=== PATIENT | female | born 1935 | race Caucasian/White ===

== ENCOUNTER 2018-02-15 15:10 | Inpatient (IN) | payer MEDICARE ==
[2018-02-15] MEDS ORDERED: oxyCODONE/Acetamin 5/325 MG* TAB PO ONE (15:48)
--- NOTE | 2018-02-15 16:19 | RAD ---
HISTORY: Fall, right hip pain and tenderness COMPARISONS: None VIEWS: 7, frontal views of the pelvis with frontal and crosstable lateral views of the right femur FINDINGS: BONE DENSITY: There is diffuse osteopenia. BONES: The patient is status post left hemiarthroplasty. There is a slightly impacted fracture of the right femoral neck. JOINTS: The patient is status post left hip arthroplasty. There is mild osteoarthritis of the right hip and knee ALIGNMENT: There is no dislocation. SOFT TISSUES: Unremarkable. OTHER FINDINGS: None. IMPRESSION: SLIGHTLY IMPACTED FRACTURE OF THE RIGHT FEMORAL NECK
[2018-02-15] MEDS ORDERED: NS 0.9% 1000 ML* 1,000 ML IV ONE (16:21)
--- NOTE | 2018-02-15 16:42 | RAD ---
HISTORY: Right hip fracture COMPARISONS: None VIEWS: 1: frontal portable view of the chest at 4:31 PM FINDINGS: LINES AND TUBES: None. CARDIOMEDIASTINAL SILHOUETTE: The cardiomediastinal silhouette is normal for portable technique. PLEURA: The costophrenic angles are sharp. No pleural abnormalities are noted. LUNG PARENCHYMA: There is hyperinflation. ABDOMEN: The upper abdomen is clear. There is no subphrenic gas. BONES AND SOFT TISSUES: There is diffuse osteopenia. There is remote posttraumatic deformity to the left clavicle. IMPRESSION: HYPERINFLATION. NO ACTIVE CARDIOPULMONARY DISEASE.
[2018-02-15 16:51] LABS: ABS Basophils 0 10^3/ul (0-0.2); ABS Eosinophils 0.1 10^3/ul (0-0.6); ABS Lymphocytes 1.3 10^3/ul (1.0-4.8); ABS Monocytes 0.2 10^3/ul (0-0.8); ABS Neutrophils 1.6 10^3/ul (1.5-7.7); ABS Nucleated RBC 0 10^3/ul; Eosinophil % 3.9 % (0-6); Hematocrit 33 % (35-47); Hemoglobin 11.3 g/dl (12.0-16.0); Lymphocyte % 40.2 % (25-47); Mean Corpuscular HGB Conc 34 g/dl (31-36); Mean Corpuscular Hemoglobin 31 pg (27-31); Mean Corpuscular Volume 91 fL (80-97); Mean Platelet Volume 7.3 um3 (7.4-10.4); Nucleated Red Blood Cells % 0; Platelet Count 211 10^3/ul (150-450); Red Blood Count 3.64 10^6/ul (4.0-5.4); Red Cell Distribution Width 14 % (10.5-15); White Blood Count 3.2 10^3/ul (3.5-10.8)
[2018-02-15 17:00] LABS: INR 0.96 (0.77-1.02)
[2018-02-15] MEDS ORDERED: Morphine INJ* 10 MG/ML 1 ML CARPUJECT IV ONE (17:15)
--- NOTE | 2018-02-15 17:15 | ED ---
Callum Hansen Stephanie, scribed for Petros Hyde on 02/15/18 at 1551 . Lower Extremity - HPI Summary HPI Summary: The pt is an 82 y/o F BIBA to the ED with c/o R hip pain that began today at 15: 19. Symptoms include R buttock pain. The pt states she fell on her R hip. - History of Current Complaint Chief Complaint: EDHipPelvisInjury Stated Complaint: RT HIP PAIN Time Seen by Provider: 02/15/18 15:31 Hx Obtained From: Patient Mechanism Of Injury: Fall From A Standing Position Onset of Pain: Post Accident Onset/Duration: Still Present Severity Currently: Moderate Pain Intensity: 6 Pain Scale Used: 0-10 Numeric Timing: Constant Location: Is Discrete @ - R hip and buttock Aggravating Factor(s): Movement Alleviating Factor(s): Nothing - Allergies/Home Medications Allergies/Adverse Reactions: Allergies Allergy/AdvReac Type Severity Reaction Status Date / Time No Known Allergies Allergy Verified 02/15/18 15:30 Home Medications: Home Medications Citalopram TAB* [CeleXA TAB*] 20 mg PO DAILY 02/15/18 [History Confirmed ] Metoprolol Succinate XL TAB* [Toprol XL TAB*] 50 mg PO QAM 02/15/18 [History Confirmed 02/15/18] Rosuvastatin (NF) [Crestor (NF)] 20 mg PO QPM 02/15/18 [History Confirmed ] PMH/Surg Hx/FS Hx/Imm Hx Sensory History: Denies: Hx Legally Blind EENT History: Denies: Hx Deafness - Surgical History Surgery Procedure, Year, and Place: NONE Infectious Disease History: No Infectious Disease History: Denies: Traveled Outside the [place] in Last 30 Days - Family History Known Family History: Negative: Renal Disease - Social History Occupation: Retired Lives: With Family Alcohol Use: None Hx Substance Use: No Substance Use Type: Reports: None Hx Tobacco Use: No Smoking Status (MU): Never Smoked Tobacco Have You Smoked in the Last Year: No Review of Systems Negative: Fever Positive: Other - R hip pain, R buttock pain Negative: Slurred Speech All Other Systems Reviewed And Are Negative: Yes Physical Exam - Summary Physical Exam Summary: Appearance: Well appearing, no pain distress Skin: warm, dry, reflects adequate perfusion Head/face: normal Eyes: EOMI, NASEEM ENT: normal Neck: supple, non-tender Respiratory: CTA, breath sounds present Cardiovascular: RRR, pulses symmetrical Abdomen: non-tender, soft Bowel: present Musculoskeletal: tenderness in R hip and R upper thigh, restricted ROM of R LE at hip Neuro: normal, sensory motor intact, A&Ox3, no neurological deficit Triage Information Reviewed: Yes Vital Signs On Initial Exam: Initial Vitals Temp Pulse Resp BP Pulse Ox 98.5 F 53 18 140/69 97 02/15/18 15:14 02/15/18 15:14 02/15/18 15:14 02/15/18 15:14 02/15/18 15:14 Vital Signs Reviewed: Yes Diagnostics - Vital Signs Vital Signs Temp Pulse Resp BP Pulse Ox 02/15/18 15:14 98.5 F 53 18 140/69 97 - Laboratory Lab Results: Lab Results 02/15/18 02/15/18 02/15/18 Range/Units 16:42 16:42 16:42 WBC 3.2 L (3.5-10.8) 10^3/ul RBC 3.64 L (4.0-5.4) 10^6/ul Hgb 11.3 L (12.0-16.0) g/dl Hct 33 L (35-47) % MCV 91 (80-97) fL MCH 31 (27-31) pg MCHC 34 (31-36) g/dl RDW 14 (10.5-15) % Plt Count 211 (150-450) 10^3/ul MPV 7.3 L (7.4-10.4) um3 Neut % (Auto) 48.9 (38-83) % Lymph % (Auto) 40.2 (25-47) % [facility] % (Auto) 6.2 (0-7) % Eos % (Auto) 3.9 (0-6) % Baso % (Auto) 0.8 (0-2) % Absolute Neuts (auto) 1.6 (1.5-7.7) 10^3/ul Absolute Lymphs (auto) 1.3 (1.0-4.8) 10^3/ul Absolute Monos (auto) 0.2 (0-0.8) 10^3/ul Absolute Eos (auto) 0.1 (0-0.6) 10^3/ul Absolute Basos (auto) 0 (0-0.2) 10^3/ul Absolute Nucleated RBC 0 10^3/ul Nucleated RBC % 0 INR (Anticoag Therapy) 0.96 (0.77-1.02) APTT 33.5 (26.0-36.3) seconds Sodium 136 L (139-145) mmol/L Potassium 3.9 (3.5-5.0) mmol/L Chloride 103 (101-111) mmol/L Carbon Dioxide 23 (22-32) mmol/L Anion Gap 10 (2-11) mmol/L BUN 25 H (6-24) mg/dL Creatinine 0.99 H (0.51-0.95) mg/dL Est GFR ( Amer) 69.4 (>60) Est GFR (Non-Af Amer) 54.0 (>60) BUN/Creatinine Ratio 25.3 H (8-20) Glucose 97 (70-100) mg/dL Calcium 9.3 (8.6-10.3) mg/dL Total Bilirubin 0.60 (0.2-1.0) mg/dL AST 42 H (13-39) U/L ALT 38 (7-52) U/L Alkaline Phosphatase 44 (34-104) U/L Total Protein 6.8 (6.4-8.9) g/dL Albumin 4.0 (3.2-5.2) g/dL Globulin 2.8 (2-4) g/dL Albumin/Globulin Ratio 1.4 (1-3) Blood Type Antibody Screen 02/15/18 Range/Units 16:45 WBC (3.5-10.8) 10^3/ul RBC (4.0-5.4) 10^6/ul Hgb (12.0-16.0) g/dl Hct (35-47) % MCV (80-97) fL MCH (27-31) pg MCHC (31-36) g/dl RDW (10.5-15) % Plt Count (150-450) 10^3/ul MPV (7.4-10.4) um3 Neut % (Auto) (38-83) % Lymph % (Auto) (25-47) % [facility] % (Auto) (0-7) % Eos % (Auto) (0-6) % Baso % (Auto) (0-2) % Absolute Neuts (auto) (1.5-7.7) 10^3/ul Absolute Lymphs (auto) (1.0-4.8) 10^3/ul Absolute Monos (auto) (0-0.8) 10^3/ul Absolute Eos (auto) (0-0.6) 10^3/ul Absolute Basos (auto) (0-0.2) 10^3/ul Absolute Nucleated RBC 10^3/ul Nucleated RBC % INR (Anticoag Therapy) (0.77-1.02) APTT (26.0-36.3) seconds Sodium (139-145) mmol/L Potassium (3.5-5.0) mmol/L Chloride (101-111) mmol/L Carbon Dioxide (22-32) mmol/L Anion Gap (2-11) mmol/L BUN (6-24) mg/dL Creatinine (0.51-0.95) mg/dL Est GFR ( Amer) (>60) Est GFR (Non-Af Amer) (>60) BUN/Creatinine Ratio (8-20) Glucose (70-100) mg/dL Calcium (8.6-10.3) mg/dL Total Bilirubin (0.2-1.0) mg/dL AST (13-39) U/L ALT (7-52) U/L Alkaline Phosphatase (34-104) U/L Total Protein (6.4-8.9) g/dL Albumin (3.2-5.2) g/dL Globulin (2-4) g/dL Albumin/Globulin Ratio (1-3) Blood Type O Negative Antibody Screen Pending Result Diagrams: 02/15/18 16:42 02/15/18 16:42 Lab Statement: Any lab studies that have been ordered have been reviewed, and results considered in the medical decision making process. - Radiology Pelvis XRay Xray Interpretation: Positive (See Comments) Radiology Interpretation Completed By: Radiologist - SLIGHTLY IMPACTED FRACTURE OF THE RIGHT FEMORAL NECK. ED physician has reviewed this report. Femur XRay Xray Interpretation: Positive (See Comments) Radiology Interpretation Completed By: Radiologist - SLIGHTLY IMPACTED FRACTURE OF THE RIGHT FEMORAL NECK. ED physician has reviewed this report. - EKG 16:41 Cardiac Rate: Bradycardia EKG Rhythm: Sinus Bradycardia - 55 BPM EKG Interpretation: No acute changes Lower Extremity Course/Dx - Course Course Of Treatment: The pt is an 82 y/o F BIBA to the ED with c/o R hip pain that began today at 15:19. Symptoms include R buttock pain. The pt states she fell on her R hip. At 17:03, ED physician spoke to Dr. Rg who suggested admission of the pt. Dr. Gonsalez accepted the pt for admission. - Diagnoses Differential Diagnosis/HQI/PQRI: Positive: Contusion, Fracture (Closed) Provider Diagnoses: Closed right hip fracture - Physician Notifications Discussed Care Of Patient With: Nakul Gonsalez Time Discussed With Above Provider: 17:02 Instructed by Provider To: Admit As Inpatient Discharge - Sign-Out/Discharge Documenting (check all that apply): Discharge/Admit/Transfer - Admit - Discharge Plan Condition: Stable Disposition: ADMITTED TO [facility] - Billing Disposition and Condition Condition: STABLE [place] [place] The documentation as recorded by the Callum tobin Stephanie accurately reflects the service I personally performed and the decisions made by Barrett chow Emmanuel.
[2018-02-15] MEDS ORDERED: Ondansetron INJ* 2 MG/ML VIAL IV ONE (17:16)
[2018-02-15] MEDS ORDERED: Morphine VIAL* 4 MG/ML VIAL (1 ml vial) IV ONE ×2 (17:26→17:38)
[2018-02-15] MEDS ORDERED: PROCHLORPERAZINE INJ 5 MG/ML 2 ML VIAL IM PRN (17:53)
[2018-02-15] MEDS: Morphine VIAL* 4 MG/ML VIAL (1 ml vial) IV PRN (18:46)
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
--- NOTE | 2018-02-15 21:08 | RAD ---
HISTORY: Preoperative planning COMPARISONS: February 15, 2018 VIEWS: 3, Frontal view of the pelvis with frontal and crosstable lateral views of the right hip FINDINGS: BONE DENSITY: Normal. BONES: Again noted is a slightly impacted and angulated fracture of the right femoral neck. The patient is status post left hip arthroplasty. JOINTS: The patient is status post left hip arthroplasty. ALIGNMENT: There is no dislocation. SOFT TISSUES: Unremarkable. OTHER FINDINGS: None. IMPRESSION: AGAIN NOTED IS A SLIGHTLY IMPACTED AND ANGULATED FRACTURE OF THE RIGHT FEMORAL NECK
[2018-02-15] MEDS: Citalopram TAB* 20 MG PO SCH (21:54)
[2018-02-15] MEDS: Atorvastatin* 40 MG TAB PO SCH (21:54)
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
[2018-02-16 06:23] LABS: Hematocrit 33 % (35-47); Hemoglobin 10.9 g/dl (12.0-16.0)
[2018-02-16 06:43] LABS: EGFR Non-African American 62.6 (>60)
[2018-02-16] MEDS: NS 0.9% 1000 ML* 1,000 ML IV SCH ×2 (06:55→23:01)
[2018-02-16] MEDS ORDERED: Metoprolol Succinate XL TAB* 50 MG PO SCH (09:00)
[2018-02-16] MEDS ORDERED: Citalopram TAB* 20 MG PO SCH (09:00)
[2018-02-16] MEDS ORDERED: ceFAZolin 2 GM PREMIX (*) 2 GM/50 ML BAG IVPB ONE (09:28)
[2018-02-16] MEDS ORDERED: Morphine INJ* 10 MG/ML 1 ML CARPUJECT ONE (09:52)
[2018-02-16] MEDS: Morphine VIAL* 4 MG/ML VIAL (1 ml vial) IV PRN (09:53)
--- NOTE | 2018-02-16 10:52 | PN ---
Progress Note - Progress Note Date of Service: 02/16/18 SOAP: Subjective: Pt seen and examined. Resting comfortable. No pain with no motion. On O2 all night. Family at graduation; Denies numbness and tingling. no fevers or chills. NPO Objective: Temp Pulse Resp BP Pulse Ox 98.6 F 63 12 108/51 96 02/16/18 10:27 02/16/18 10:27 02/16/18 10:27 02/16/18 10:27 02/16/18 10:27 NAD. AAOx3; pleasant R hip: skin intact, tender appropriately, SILT grossly distally. Brisk cap refill. calf soft and nontender. able to dorsiflex/plantarflex hip Assessment: valgus impacted fx of right hip Plan: Plan for R hip cannulated screws today in OR NPO ancef showroom salesperson to OR.
[2018-02-16] MEDS ORDERED: Bupivacaine 0.25% SDV* 30 ML ONE (10:57)
[2018-02-16] MEDS ORDERED: Propofol* 10 MG/ML 20 ML BTL IV PUSH ONE (11:09)
--- NOTE | 2018-02-16 11:28 | PN ---
Subjective Date of Service: 02/16/18 Interval History: Patient reports her pain is 4/10 and has been improving the last hour. She denies N/V. No SOB/CP. She is looking forward to eating. Objective Active Medications: Atorvastatin Calcium (Lipitor*) 40 mg PO QPM [facility] Last Admin: 02/15/18 21:54 Dose: 40 mg Citalopram Hydrobromide (Celexa Tab*) 20 mg PO BEDTIME [facility] Last Admin: 02/15/18 21:54 Dose: 20 mg Sodium Chloride (Ns 0.9% 1000 Ml*) 1,000 mls @ 100 mls/hr IV PER RATE [facility] Last Admin: 02/16/18 06:55 Dose: 100 mls/hr Metoprolol Succinate (Toprol Xl Tab*) 50 mg PO QAM [facility] Last Admin: 02/16/18 08:21 Dose: 50 mg Morphine Sulfate (Morphine Vial*) 2 mg IV Q4H PRN PRN Reason: PAIN - MODERATE Last Admin: 02/16/18 09:53 Dose: 2 mg Oxycodone/Acetaminophen (Percocet 5/325 Tab*) 1 tab PO Q4H PRN PRN Reason: PAIN Prochlorperazine Edisylate (Compazine Inj*) 5 mg IM Q6H PRN PRN Reason: NAUSEA Vital Signs - 8 hr 02/16/18 02/16/18 02/16/18 04:18 06:35 07:30 Temperature 98.8 F 97.4 F Pulse Rate 56 51 Respiratory 15 15 15 Rate Blood Pressure 92/44 103/48 (mmHg) O2 Sat by Pulse 100 98 Oximetry 02/16/18 02/16/18 02/16/18 09:10 09:53 10:27 Temperature 99.3 F 98.6 F Pulse Rate 66 63 Respiratory 16 16 12 Rate Blood Pressure 112/60 108/51 (mmHg) O2 Sat by Pulse 97 96 Oximetry Oxygen Devices in Use Now: Nasal Cannula Appearance: 82 yo female well developed A+O x3 in NAD Eyes: No Scleral Icterus, PERRLA Ears/Nose/Mouth/Throat: NL Teeth, Lips, Gums, Mucous Membranes Moist Neck: NL Appearance and Movements; NL JVP Respiratory: Symmetrical Chest Expansion and Respiratory Effort, Clear to Auscultation Cardiovascular: NL Sounds; No Murmurs; No JVD, RRR, No Edema Abdominal: NL Sounds; No Tenderness; No Distention Extremities: No Clubbing, Cyanosis, - Skin: No Rash or Ulcers, No Nodules or Sclerosis Neurological: Alert and Oriented x 3, NL Sensation, NL Muscle Strength and Tone Lines/Tubes/Other Access: Clean, Dry and Intact Peripheral IV Nutrition: Taking PO's Result Diagrams: 02/16/18 06:16 02/16/18 06:16 Additional Lab and Data: Lab Results 02/15/18 02/15/18 02/15/18 Range/Units 16:42 16:42 16:42 WBC 3.2 L (3.5-10.8) 10^3/ul RBC 3.64 L (4.0-5.4) 10^6/ul Hgb 11.3 L (12.0-16.0) g/dl Hct 33 L (35-47) % MCV 91 (80-97) fL MCH 31 (27-31) pg MCHC 34 (31-36) g/dl RDW 14 (10.5-15) % Plt Count 211 (150-450) 10^3/ul MPV 7.3 L (7.4-10.4) um3 Neut % (Auto) 48.9 (38-83) % Lymph % (Auto) 40.2 (25-47) % [place] % (Auto) 6.2 (0-7) % Eos % (Auto) 3.9 (0-6) % Baso % (Auto) 0.8 (0-2) % Absolute Neuts (auto) 1.6 (1.5-7.7) 10^3/ul Absolute Lymphs (auto) 1.3 (1.0-4.8) 10^3/ul Absolute Monos (auto) 0.2 (0-0.8) 10^3/ul Absolute Eos (auto) 0.1 (0-0.6) 10^3/ul Absolute Basos (auto) 0 (0-0.2) 10^3/ul Absolute Nucleated RBC 0 10^3/ul Nucleated RBC % 0 INR (Anticoag Therapy) 0.96 (0.77-1.02) APTT 33.5 (26.0-36.3) seconds Sodium 136 L (139-145) mmol/L Potassium 3.9 (3.5-5.0) mmol/L Chloride 103 (101-111) mmol/L Carbon Dioxide 23 (22-32) mmol/L Anion Gap 10 (2-11) mmol/L BUN 25 H (6-24) mg/dL Creatinine 0.99 H (0.51-0.95) mg/dL Est GFR ( Amer) 69.4 (>60) Est GFR (Non-Af Amer) 54.0 (>60) BUN/Creatinine Ratio 25.3 H (8-20) Glucose 97 (70-100) mg/dL Calcium 9.3 (8.6-10.3) mg/dL Total Bilirubin 0.60 (0.2-1.0) mg/dL AST 42 H (13-39) U/L ALT 38 (7-52) U/L Alkaline Phosphatase 44 (34-104) U/L Total Protein 6.8 (6.4-8.9) g/dL Albumin 4.0 (3.2-5.2) g/dL Globulin 2.8 (2-4) g/dL Albumin/Globulin Ratio 1.4 (1-3) Blood Type Antibody Screen 02/15/18 Range/Units 16:45 WBC (3.5-10.8) 10^3/ul RBC (4.0-5.4) 10^6/ul Hgb (12.0-16.0) g/dl Hct (35-47) % MCV (80-97) fL MCH (27-31) pg MCHC (31-36) g/dl RDW (10.5-15) % Plt Count (150-450) 10^3/ul MPV (7.4-10.4) um3 Neut % (Auto) (38-83) % Lymph % (Auto) (25-47) % [place] % (Auto) (0-7) % Eos % (Auto) (0-6) % Baso % (Auto) (0-2) % Absolute Neuts (auto) (1.5-7.7) 10^3/ul Absolute Lymphs (auto) (1.0-4.8) 10^3/ul Absolute Monos (auto) (0-0.8) 10^3/ul Absolute Eos (auto) (0-0.6) 10^3/ul Absolute Basos (auto) (0-0.2) 10^3/ul Absolute Nucleated RBC 10^3/ul Nucleated RBC % INR (Anticoag Therapy) (0.77-1.02) APTT (26.0-36.3) seconds Sodium (139-145) mmol/L Potassium (3.5-5.0) mmol/L Chloride (101-111) mmol/L Carbon Dioxide (22-32) mmol/L Anion Gap (2-11) mmol/L BUN (6-24) mg/dL Creatinine (0.51-0.95) mg/dL Est GFR ( Amer) (>60) Est GFR (Non-Af Amer) (>60) BUN/Creatinine Ratio (8-20) Glucose (70-100) mg/dL Calcium (8.6-10.3) mg/dL Total Bilirubin (0.2-1.0) mg/dL AST (13-39) U/L ALT (7-52) U/L Alkaline Phosphatase (34-104) U/L Total Protein (6.4-8.9) g/dL Albumin (3.2-5.2) g/dL Globulin (2-4) g/dL Albumin/Globulin Ratio (1-3) Blood Type O Negative Antibody Screen Pending Assess/Plan/Problems-Billing Assessment: 82 yo female from [place] with a PMH of HTN, Osteoarthritis, HLD and anxiety who was at [facility] and had a mechanical fall found to have a right femoral neck fractured. - Patient Problems (1) Fracture of femoral neck, right, closed Comment: POD #0 Dispo per Orth Team Pain management, bowel regimen, PT/OT (2) HTN (hypertension) Comment: - Controlled. Continue Metoprolol home dose with hold parameters. (3) HLD (hyperlipidemia) Comment: - continue statin (4) Depression Comment: - controlled - continue celexa - supportive treatment (5) DVT prophylaxis Comment: lovenox (6) Full code status Status and Disposition: inpatient with right femoral neck fracture with repair. lives in [place], discharge to be determined
[2018-02-16] MEDS ORDERED: Naloxone* 0.4 MG/ML 1 ML VIAL IV PRN (11:59)
[2018-02-16] MEDS ORDERED: Acetaminophen TAB* 325 MG PO PRN (11:59)
[2018-02-16] MEDS ORDERED: fentaNYL* 50 MCG/ML 2 ML VIAL (100 MCG VIAL) IV PRN (11:59)
[2018-02-16] MEDS ORDERED: DiMENhydriNATE IV* 50 MG/ML VIAL IV PUSH PRN (11:59)
[2018-02-16] MEDS ORDERED: Morphine INJ* 2 MG/ML 1 ML CARPUJECT IV PRN (11:59)
[2018-02-16] MEDS ORDERED: EPHEDrine (Pressors)* 50 MG/ML VIAL ONE (12:17)
[2018-02-16] MEDS ORDERED: Lidocaine 2% PF * 5 ML VIAL ONE (12:17)
[2018-02-16] MEDS ORDERED: fentaNYL* 50 MCG/ML 2 ML VIAL (100 MCG VIAL) ONE (12:32)
--- NOTE | 2018-02-16 12:43 | RAD ---
INDICATION: Right hip pinning COMPARISON: February 15, 2018 FINDINGS: 38 seconds of fluoroscopy were provided for the with pedis department. Fluoroscopic spot imaging of the right hip were obtained for operative control and show interval right hip pinning. There is no evidence of hardware failure. . CPT II Codes: G9500 (fluoro time doc)
[2018-02-16] MEDS ORDERED: Acetaminophen TAB* 325 MG ONE (13:19)
[2018-02-16] MEDS: oxyCODONE/Acetamin 5/325 MG* TAB PO PRN (15:53)
[2018-02-16] MEDS: Atorvastatin* 40 MG TAB PO SCH (18:43)
[2018-02-16] MEDS: ceFAZolin 1 GM in Dextrose (*) 1 GM/50 ML BAG IVPB SCH (19:26)
[2018-02-16] MEDS: Citalopram TAB* 20 MG PO SCH (21:00)
--- NOTE | 2018-02-16 23:24 | OP ---
OPERATIVE REPORT: DATE OF OPERATION: 02/16/18 DATE OF : 39 SURGEON: Kori Rg MD SALES ACCOUNT MANAGER: None. ANESTHESIOLOGIST: Dr. Lovett. ANESTHESIA: General. PRE-OP DIAGNOSIS: Right subcapital femoral neck fracture, valgus impacted. POST-OP DIAGNOSIS: Right subcapital femoral neck fracture, valgus impacted. OPERATIVE PROCEDURE: Right hip cannulated screws. INDICATIONS: Corrie Rogers is an 82-year-old female, who was present for her grandson's graduation at [employer] and she fell yesterday. She sustained a mechanical fall with no loss of consciousness. She sustained a right femoral neck fracture. She has a history of previous left displacement femoral neck fracture, treated with hemiarthroplasty 2 years ago. She apparently resides in [place]. Her family lives in [place], and is here for the graduation. After an extensive discussion of the risks and benefits of surgical versus nonoperative treatment, she has elected to proceed with surgical treatment. Risks and benefits of surgery were discussed and included, but not limited to, bleeding, infection, damage to nerves, vessels, surrounding structures, wound nonhealing, persistent pain, need for surgery, risks of osteonecrosis, nonunion , malunion, need for further surgery, risk of arthritis, incomplete relief of symptoms, loss of level of functionality, risk of DVT, risk of anesthesia. She elected to proceed. COMPLICATIONS: None. ESTIMATED BLOOD LOSS: 50. DESCRIPTION OF PROCEDURE: The patient was greeted in the preoperative area by the attending surgeon. The correct extremity was marked and the consent was confirmed. The patient was then brought back to the operating suite where she was placed in the supine position on the operating table. She then underwent general anesthesia with LMA intubation after which she was appropriately positioned in the traction table with a well-padded perineal post. The left leg was draped as well and it was then placed in a well-leg ortiz. Gentle traction on the hip was then done with slight external rotation. The x-ray was brought in to confirm that there was no evidence of displacement. After this was done, the right hip was then prepped and draped in the usual sterile fashion beginning with chlorhexidine soap, scrub, and alcohol wipe, and a final prep with ChloraPrep. After appropriate surgical pause indicating site, side, procedure, administration of antibiotics, a lateral incision was made over the femur. Soft tissues were carefully dissected to expose the IT band, which was then sharply incised. At this point, a 2.8-mm guidewire was then placed with fluoroscopic visualization. First, an inferior one was placed inferior and centered on the femoral neck. This was confirmed on AP and lateral views. Then , two more proximal guidewires were placed in a parallel fashion, one more anteriorly in the neck, one more posteriorly in the neck. These were confirmed under fluoroscopic visualization. Once these were placed at the appropriate depth, there were measured and then the lateral cortex was penetrated with a cannulated drill and the final screws were placed using short thread 7.3-mm cannulated screws and this was confirmed under C-arm visualization to be subchondral, but had enough length across the fracture site. Final images were obtained. The wounds were copiously irrigated with sterile saline. The IT band was closed in an interrupted fashion with 0 Vicryl, skin in layers with 2- 0 Vicryl and irene. The wound was then injected with 30 cc of 0.25% Marcaine plain. Sterile dressings were applied. She was woken from anesthesia and transferred to PACU in stable condition. POSTOPERATIVE PLAN: She will be weightbearing as tolerated. She will placed on pain medications. We will follow her blood count. She will start physical therapy and begin weightbearing as tolerated as soon as possible. DVT prophylaxis will be Lovenox for 6 weeks to prevent DVT. She will likely be discharged to a facility closer to her family who live in [place]. I will continue to follow the patient when she is admitted in the hospital. Dressing will be changed on postop day 2. She will receive 24 hours of postoperative antibiotics. We will follow the patient while in-house and then help set up discharge when she has reached maximal medical improvement. [id number]/[facility] #: [id number] [facility]ST[facility]atiana
[2018-02-17] MEDS: oxyCODONE/Acetamin 5/325 MG* TAB PO PRN ×3 (00:11→17:46)
[2018-02-17] MEDS: ceFAZolin 1 GM in Dextrose (*) 1 GM/50 ML BAG IVPB SCH ×2 (03:38→12:09)
[2018-02-17] MEDS ORDERED: Ondansetron 40 MG VIAL* 2 MG/ML 20 ML VIAL IV PRN (08:03)
--- NOTE | 2018-02-17 08:18 | PN ---
Progress Note - Progress Note Date of Service: 02/17/18 SOAP: Subjective: Pt seen and examined. Complains of nausea with emesis overnight. Denies CP, calf pain. No numbness and tingling. Painful at incision site. Objective: Temp Pulse Resp BP Pulse Ox 99.9 F 73 16 142/63 83 02/17/18 07:23 02/17/18 07:23 02/17/18 07:23 02/17/18 07:23 02/17/18 07:23 NAD. AAOx3. pleasant and comfortable. Lying in bed. on O2. Right lower extremity : Dressing in place. calf soft, nontender. SILT grossly distally. Able to dorsiflex/plantarflex the ankle. brisk cap refill. Assessment: POD#1 from R hip cannulated screw Plan: nausea. only able to take compazine increase PO as tolerated DVT ppx with lovenox continue IV abx until 24 hours post op dressing change tomorrow WBAT- PT/OT on O2 will wean as tolerated dispo likely to SNF closer to family analgesia <Rad Scott G - Last Filed: 02/17/18 08:11> - Progress Note SOAP: ERROR: Note added by Dr Scott by accident. Was documented by Dr Rg. Sodium 140 mmol/L (139-145) 02/16/18 06:16 Potassium 4.0 mmol/L (3.5-5.0) 02/16/18 06:16 BUN 24 mg/dL (6-24) 02/16/18 06:16 Creatinine 0.87 mg/dL (0.51-0.95) 02/16/18 06:16 Calcium 8.8 mg/dL (8.6-10.3) 02/16/18 06:16 AST 42 U/L (13-39) H 02/15/18 16:42 ALT 38 U/L (7-52) 02/15/18 16:42 Laboratory Last Values WBC 3.2 10^3/ul (3.5-10.8) L 02/15/18 16:42 RBC 3.64 10^6/ul (4.0-5.4) L 02/15/18 16:42 Hgb 10.9 g/dl (12.0-16.0) L 02/16/18 06:16 Hct 33 % (35-47) L 02/16/18 06:16 MCV 91 fL (80-97) 02/15/18 16:42 MCH 31 pg (27-31) 02/15/18 16:42 MCHC 34 g/dl (31-36) 02/15/18 16:42 RDW 14 % (10.5-15) 02/15/18 16:42 Plt Count 211 10^3/ul (150-450) 02/15/18 16:42 MPV 7.3 um3 (7.4-10.4) L 02/15/18 16:42 Neut % (Auto) 48.9 % (38-83) 02/15/18 16:42 Lymph % (Auto) 40.2 % (25-47) 02/15/18 16:42 [place] % (Auto) 6.2 % (0-7) 02/15/18 16:42 Eos % (Auto) 3.9 % (0-6) 02/15/18 16:42 Baso % (Auto) 0.8 % (0-2) 02/15/18 16:42 Absolute Neuts (auto) 1.6 10^3/ul (1.5-7.7) 02/15/18 16:42 Absolute Lymphs (auto) 1.3 10^3/ul (1.0-4.8) 02/15/18 16:42 Absolute Monos (auto) 0.2 10^3/ul (0-0.8) 02/15/18 16:42 Absolute Eos (auto) 0.1 10^3/ul (0-0.6) 02/15/18 16:42 Absolute Basos (auto) 0 10^3/ul (0-0.2) 02/15/18 16:42 Absolute Nucleated RBC 0 10^3/ul 02/15/18 16:42 Nucleated RBC % 0 02/15/18 16:42 INR (Anticoag Therapy) 0.96 (0.77-1.02) 02/15/18 16:42 APTT 33.5 seconds (26.0-36.3) 02/15/18 16:42 Sodium 140 mmol/L (139-145) 02/16/18 06:16 Potassium 4.0 mmol/L (3.5-5.0) 02/16/18 06:16 Chloride 109 mmol/L (101-111) 02/16/18 06:16 Carbon Dioxide 26 mmol/L (22-32) 02/16/18 06:16 Anion Gap 5 mmol/L (2-11) 02/16/18 06:16 BUN 24 mg/dL (6-24) 02/16/18 06:16 Creatinine 0.87 mg/dL (0.51-0.95) 02/16/18 06:16 Est GFR ( Amer) 80.6 (>60) 02/16/18 06:16 Est GFR (Non-Af Amer) 62.6 (>60) 02/16/18 06:16 BUN/Creatinine Ratio 27.6 (8-20) H 02/16/18 06:16 Glucose 152 mg/dL (70-100) H 02/16/18 06:16 Calcium 8.8 mg/dL (8.6-10.3) 02/16/18 06:16 Total Bilirubin 0.60 mg/dL (0.2-1.0) 02/15/18 16:42 AST 42 U/L (13-39) H 02/15/18 16:42 ALT 38 U/L (7-52) 02/15/18 16:42 Alkaline Phosphatase 44 U/L (34-104) 02/15/18 16:42 Total Protein 6.8 g/dL (6.4-8.9) 02/15/18 16:42 Albumin 4.0 g/dL (3.2-5.2) 02/15/18 16:42 Globulin 2.8 g/dL (2-4) 02/15/18 16:42 Albumin/Globulin Ratio 1.4 (1-3) 02/15/18 16:42 Blood Type O Negative 02/15/18 16:45 Antibody Screen Negative 02/15/18 16:45 <Kori Rg - Last Filed: 02/17/18 08:21>
--- NOTE | 2018-02-17 08:22 | PN ---
Progress Note - Progress Note Date of Service: 02/17/18 Note: Previous note placed in error. Should be assigned to Dr Rg.
[2018-02-17] MEDS ORDERED: PROCHLORPERAZINE INJ 5 MG/ML 2 ML VIAL IV PRN (08:45)
[2018-02-17] MEDS: Enoxaparin(*) 30 MG/0.3 ML SYR SUBCUT SCH (08:59)
[2018-02-17] MEDS: Metoprolol Succinate XL TAB* 50 MG PO SCH (08:59)
--- NOTE | 2018-02-17 09:53 | PN ---
Subjective Date of Service: 02/17/18 Interval History: Patient reports she worked with PT this am and had some pain. She states she didnt sleep well because she was uncomfortable. Some mild nausea this am. No vomiting, denies abdominal pain, no diarrhea. Objective Active Medications: Atorvastatin Calcium (Lipitor*) 40 mg PO QPM [facility] Last Admin: 02/16/18 18:43 Dose: 40 mg Citalopram Hydrobromide (Celexa Tab*) 20 mg PO BEDTIME [facility] Last Admin: 02/16/18 21:00 Dose: 20 mg Enoxaparin Sodium (Lovenox(*)) 30 mg SUBCUT Q24H [facility] Last Admin: 02/17/18 08:59 Dose: 30 mg Sodium Chloride (Ns 0.9% 1000 Ml*) 1,000 mls @ 100 mls/hr IV PER RATE [facility] Last Admin: 02/16/18 23:01 Dose: 100 mls/hr Cefazolin Sodium/Dextrose (Kefzol 1 Gm In Dextrose Duplex (*)) 1 gm in 50 mls @ 200 mls/hr IVPB Q8H [facility] Stop: 02/17/18 11:44 Last Admin: 02/17/18 03:38 Dose: 200 mls/hr Metoprolol Succinate (Toprol Xl Tab*) 50 mg PO QAM [facility] Last Admin: 02/17/18 08:59 Dose: 50 mg Morphine Sulfate (Morphine Vial*) 2 mg IV Q4H PRN PRN Reason: PAIN - MODERATE Last Admin: 02/16/18 09:53 Dose: 2 mg Naloxone HCl (Narcan*) 0.08 mg IV Q2M PRN PRN Reason: severe induced resp depression Stop: 02/17/18 11:58 Ondansetron HCl (Zofran 40 Mg Vial*) 4 mg IV Q6H PRN PRN Reason: NAUSEA Oxycodone/Acetaminophen (Percocet 5/325 Tab*) 1 tab PO Q4H PRN PRN Reason: PAIN Last Admin: 02/17/18 09:01 Dose: 1 tab Prochlorperazine Edisylate (Compazine Inj*) 5 mg IV Q6H PRN PRN Reason: NAUSEA Vital Signs - 8 hr 02/17/18 02/17/18 02/17/18 02:54 04:31 07:23 Temperature 98.3 F 99.9 F Pulse Rate 71 73 Respiratory 16 16 16 Rate Blood Pressure 131/61 142/63 (mmHg) O2 Sat by Pulse 100 83 Oximetry 02/17/18 09:01 Temperature Pulse Rate Respiratory 18 Rate Blood Pressure (mmHg) O2 Sat by Pulse Oximetry Oxygen Devices in Use Now: Nasal Cannula Appearance: elderly female A+O x3 in NAD sitting up in bed Eyes: No Scleral Icterus, PERRLA Ears/Nose/Mouth/Throat: NL Teeth, Lips, Gums, Clear Oropharnyx, Mucous Membranes Moist Respiratory: Symmetrical Chest Expansion and Respiratory Effort, Clear to Auscultation Cardiovascular: NL Sounds; No Murmurs; No JVD, RRR, No Edema Abdominal: NL Sounds; No Tenderness; No Distention Extremities: No Edema, No Clubbing, Cyanosis Neurological: Alert and Oriented x 3, NL Sensation Lines/Tubes/Other Access: Clean, Dry and Intact Peripheral IV Nutrition: Taking PO's Result Diagrams: 02/16/18 06:16 02/16/18 06:16 Additional Lab and Data: Lab Results 02/15/18 02/15/18 02/15/18 Range/Units 16:42 16:42 16:42 WBC 3.2 L (3.5-10.8) 10^3/ul RBC 3.64 L (4.0-5.4) 10^6/ul Hgb 11.3 L (12.0-16.0) g/dl Hct 33 L (35-47) % MCV 91 (80-97) fL MCH 31 (27-31) pg MCHC 34 (31-36) g/dl RDW 14 (10.5-15) % Plt Count 211 (150-450) 10^3/ul MPV 7.3 L (7.4-10.4) um3 Neut % (Auto) 48.9 (38-83) % Lymph % (Auto) 40.2 (25-47) % [place] % (Auto) 6.2 (0-7) % Eos % (Auto) 3.9 (0-6) % Baso % (Auto) 0.8 (0-2) % Absolute Neuts (auto) 1.6 (1.5-7.7) 10^3/ul Absolute Lymphs (auto) 1.3 (1.0-4.8) 10^3/ul Absolute Monos (auto) 0.2 (0-0.8) 10^3/ul Absolute Eos (auto) 0.1 (0-0.6) 10^3/ul Absolute Basos (auto) 0 (0-0.2) 10^3/ul Absolute Nucleated RBC 0 10^3/ul Nucleated RBC % 0 INR (Anticoag Therapy) 0.96 (0.77-1.02) APTT 33.5 (26.0-36.3) seconds Sodium 136 L (139-145) mmol/L Potassium 3.9 (3.5-5.0) mmol/L Chloride 103 (101-111) mmol/L Carbon Dioxide 23 (22-32) mmol/L Anion Gap 10 (2-11) mmol/L BUN 25 H (6-24) mg/dL Creatinine 0.99 H (0.51-0.95) mg/dL Est GFR ( Amer) 69.4 (>60) Est GFR (Non-Af Amer) 54.0 (>60) BUN/Creatinine Ratio 25.3 H (8-20) Glucose 97 (70-100) mg/dL Calcium 9.3 (8.6-10.3) mg/dL Total Bilirubin 0.60 (0.2-1.0) mg/dL AST 42 H (13-39) U/L ALT 38 (7-52) U/L Alkaline Phosphatase 44 (34-104) U/L Total Protein 6.8 (6.4-8.9) g/dL Albumin 4.0 (3.2-5.2) g/dL Globulin 2.8 (2-4) g/dL Albumin/Globulin Ratio 1.4 (1-3) Blood Type Antibody Screen 02/15/18 Range/Units 16:45 WBC (3.5-10.8) 10^3/ul RBC (4.0-5.4) 10^6/ul Hgb (12.0-16.0) g/dl Hct (35-47) % MCV (80-97) fL MCH (27-31) pg MCHC (31-36) g/dl RDW (10.5-15) % Plt Count (150-450) 10^3/ul MPV (7.4-10.4) um3 Neut % (Auto) (38-83) % Lymph % (Auto) (25-47) % [place] % (Auto) (0-7) % Eos % (Auto) (0-6) % Baso % (Auto) (0-2) % Absolute Neuts (auto) (1.5-7.7) 10^3/ul Absolute Lymphs (auto) (1.0-4.8) 10^3/ul Absolute Monos (auto) (0-0.8) 10^3/ul Absolute Eos (auto) (0-0.6) 10^3/ul Absolute Basos (auto) (0-0.2) 10^3/ul Absolute Nucleated RBC 10^3/ul Nucleated RBC % INR (Anticoag Therapy) (0.77-1.02) APTT (26.0-36.3) seconds Sodium (139-145) mmol/L Potassium (3.5-5.0) mmol/L Chloride (101-111) mmol/L Carbon Dioxide (22-32) mmol/L Anion Gap (2-11) mmol/L BUN (6-24) mg/dL Creatinine (0.51-0.95) mg/dL Est GFR ( Amer) (>60) Est GFR (Non-Af Amer) (>60) BUN/Creatinine Ratio (8-20) Glucose (70-100) mg/dL Calcium (8.6-10.3) mg/dL Total Bilirubin (0.2-1.0) mg/dL AST (13-39) U/L ALT (7-52) U/L Alkaline Phosphatase (34-104) U/L Total Protein (6.4-8.9) g/dL Albumin (3.2-5.2) g/dL Globulin (2-4) g/dL Albumin/Globulin Ratio (1-3) Blood Type O Negative Antibody Screen Pending Assess/Plan/Problems-Billing Assessment: 82 yo female from [place] with a PMH of HTN, Osteoarthritis, HLD and anxiety who was at [facility] and had a mechanical fall found to have a right femoral neck fractured. - Patient Problems (1) Fracture of femoral neck, right, closed Comment: POD #1 s/p hip cannulated screw Dispo per Orth Team Pain management, bowel regimen, PT/OT WBAT (2) HTN (hypertension) Comment: - Controlled. Continue Metoprolol home dose with hold parameters. (3) HLD (hyperlipidemia) Comment: - continue statin (4) Depression Comment: - controlled - continue celexa - supportive treatment (5) DVT prophylaxis Comment: louienox (6) Full code status Status and Disposition: inpatient with right femoral neck fracture with repair. lives in [place], discharge to be determined. Most likely subacute closer to family.
[2018-02-17] MEDS: Atorvastatin* 40 MG TAB PO SCH (17:46)
[2018-02-17] MEDS: Citalopram TAB* 20 MG PO SCH (21:09)
[2018-02-17] MEDS ORDERED: Magnesium Hydroxide LIQ* 30 ML UDC PO PRN (21:38)
[2018-02-17] MEDS ORDERED: Polyethylene Glycol 3350* 17 GM PACKET PO PRN (21:38)
[2018-02-17] MEDS: Docusate CAP* 100 MG PO SCH (22:10)
[2018-02-18] MEDS: oxyCODONE/Acetamin 5/325 MG* TAB PO PRN (01:57)
[2018-02-18] MEDS: Morphine VIAL* 4 MG/ML VIAL (1 ml vial) IV PRN (04:13)
[2018-02-18] MEDS: Metoprolol Succinate XL TAB* 50 MG PO SCH (09:45)
[2018-02-18] MEDS: Docusate CAP* 100 MG PO SCH ×2 (09:45→20:05)
[2018-02-18] MEDS: Enoxaparin(*) 30 MG/0.3 ML SYR SUBCUT SCH (09:50)
--- NOTE | 2018-02-18 12:23 | PN ---
Progress Note - Progress Note Date of Service: 02/18/18 SOAP: Subjective: resting comfortably in bed with no complaints Objective: Laboratory Last Values WBC 3.2 10^3/ul (3.5-10.8) L 02/15/18 16:42 RBC 3.64 10^6/ul (4.0-5.4) L 02/15/18 16:42 Hgb 10.9 g/dl (12.0-16.0) L 02/16/18 06:16 Hct 33 % (35-47) L 02/16/18 06:16 MCV 91 fL (80-97) 02/15/18 16:42 MCH 31 pg (27-31) 02/15/18 16:42 MCHC 34 g/dl (31-36) 02/15/18 16:42 RDW 14 % (10.5-15) 02/15/18 16:42 Plt Count 211 10^3/ul (150-450) 02/15/18 16:42 MPV 7.3 um3 (7.4-10.4) L 02/15/18 16:42 Neut % (Auto) 48.9 % (38-83) 02/15/18 16:42 Lymph % (Auto) 40.2 % (25-47) 02/15/18 16:42 [place] % (Auto) 6.2 % (0-7) 02/15/18 16:42 Eos % (Auto) 3.9 % (0-6) 02/15/18 16:42 Baso % (Auto) 0.8 % (0-2) 02/15/18 16:42 Absolute Neuts (auto) 1.6 10^3/ul (1.5-7.7) 02/15/18 16:42 Absolute Lymphs (auto) 1.3 10^3/ul (1.0-4.8) 02/15/18 16:42 Absolute Monos (auto) 0.2 10^3/ul (0-0.8) 02/15/18 16:42 Absolute Eos (auto) 0.1 10^3/ul (0-0.6) 02/15/18 16:42 Absolute Basos (auto) 0 10^3/ul (0-0.2) 02/15/18 16:42 Absolute Nucleated RBC 0 10^3/ul 02/15/18 16:42 Nucleated RBC % 0 02/15/18 16:42 INR (Anticoag Therapy) 0.96 (0.77-1.02) 02/15/18 16:42 APTT 33.5 seconds (26.0-36.3) 02/15/18 16:42 Sodium 140 mmol/L (139-145) 02/16/18 06:16 Potassium 4.0 mmol/L (3.5-5.0) 02/16/18 06:16 Chloride 109 mmol/L (101-111) 02/16/18 06:16 Carbon Dioxide 26 mmol/L (22-32) 02/16/18 06:16 Anion Gap 5 mmol/L (2-11) 02/16/18 06:16 BUN 24 mg/dL (6-24) 02/16/18 06:16 Creatinine 0.87 mg/dL (0.51-0.95) 02/16/18 06:16 Est GFR ( Amer) 80.6 (>60) 02/16/18 06:16 Est GFR (Non-Af Amer) 62.6 (>60) 02/16/18 06:16 BUN/Creatinine Ratio 27.6 (8-20) H 02/16/18 06:16 Glucose 152 mg/dL (70-100) H 02/16/18 06:16 Calcium 8.8 mg/dL (8.6-10.3) 02/16/18 06:16 Total Bilirubin 0.60 mg/dL (0.2-1.0) 02/15/18 16:42 AST 42 U/L (13-39) H 02/15/18 16:42 ALT 38 U/L (7-52) 02/15/18 16:42 Alkaline Phosphatase 44 U/L (34-104) 02/15/18 16:42 Total Protein 6.8 g/dL (6.4-8.9) 02/15/18 16:42 Albumin 4.0 g/dL (3.2-5.2) 02/15/18 16:42 Globulin 2.8 g/dL (2-4) 02/15/18 16:42 Albumin/Globulin Ratio 1.4 (1-3) 02/15/18 16:42 Blood Type O Negative 02/15/18 16:45 Antibody Screen Negative 02/15/18 16:45 Vital Signs Temp Pulse Resp BP Pulse Ox 98.1 F 77 20 150/71 93 02/18/18 11:22 02/18/18 11:22 02/18/18 11:22 02/18/18 11:22 02/18/18 11:22 incision: c/d; dressing changed PE: able to plantar flex and dorsi flex, 2+DP, intact sensation Assessment: POD#2 right hip cannulated screws Plan: 1) PT/OT 2) Lovenox for DVT prophylaxis 3) likely need inpatient rehab
--- NOTE | 2018-02-18 13:30 | PN ---
Progress Note - Progress Note Date of Service: 02/18/18 Note: Pt seen and examined at 6:30 AM. doing ok. slightly nauseuous but improved. Denies numbness and tingling. No CP, SOB. worked with PT yesterday. doing ok. BM last night Temp Pulse Resp BP Pulse Ox 98.1 F 77 20 150/71 93 02/18/18 11:22 02/18/18 11:22 02/18/18 11:22 02/18/18 11:22 02/18/18 11:22 NAD. AAOx3. RLE: dressing in place. calf soft and nontender. SILT, brisk cap refill. able to dorsiflex/plantarflex ankle A/P POD#2 from R hip abraham screws WBAT analgesia lovenox 6 weeks dispo when stable can follow up with [facility] Dr Val Gonzales who is aware.
[2018-02-18] MEDS ORDERED: Aspirin TAB* 325 MG PO ONE (13:43)
--- NOTE | 2018-02-18 14:52 | RAD ---
INDICATION: Visual change COMPARISON: None TECHNIQUE: Noncontrast axial source images were acquired from the skull base to the vertex. FINDINGS: Ventricles/sulci: The ventricles and cisterns are normal in size and configuration for age. There are age-related cortical involutional changes. Brain parenchyma: There is mild chronic microvascular ischemic change. Intracranial hemorrhage:None. Extra-axial spaces: There are no abnormal extra axial fluid collections or evidence of extra-axial mass. Calvarium: There is no calvarial fracture or other calvarial abnormality. Scalp: There is no evidence of scalp or extracalvarial soft tissue abnormality. Paranasal sinuses/mastoid: The paranasal sinuses and mastoid air cells are clear. Other: None. IMPRESSION: NO ACUTE FINDINGS. MILD CORTICAL INVOLUTIONAL CHANGE WITH CHRONIC MICROVASCULAR ISCHEMIA.
--- NOTE | 2018-02-18 16:46 | PN ---
Subjective Date of Service: 02/18/18 Interval History: Patient states pain in present but well controlled. Patient complains of Multiple scotomata present in both eyes up to a Dozen which were present upon awakening this AM and have remained constant. Patient had a previous episode like this which resolved with time. Patient did not seek medical attention for that. Patient denies F/C, N/V, abdominal pain, diarrhea, CP, SOB, or other pain. Family History: Unchanged from Admission Social History: Unchanged from Admission Past Medical History: Unchanged from Admission Objective Active Medications: Aspirin (Aspirin Ec Tab*) 81 mg PO DAILY [facility] Atorvastatin Calcium (Lipitor*) 40 mg PO QPM [facility] Last Admin: 02/17/18 17:46 Dose: 40 mg Citalopram Hydrobromide (Celexa Tab*) 20 mg PO BEDTIME [facility] Last Admin: 02/17/18 21:09 Dose: 20 mg Docusate Sodium (Colace Cap*) 100 mg PO BID [facility] Last Admin: 02/18/18 09:45 Dose: 100 mg Enoxaparin Sodium (Lovenox(*)) 30 mg SUBCUT Q24H [facility] Last Admin: 02/18/18 09:50 Dose: 30 mg Magnesium Hydroxide (Milk Of Magnesia Liq*) 30 ml PO Q6H PRN PRN Reason: CONSTIPATION Last Admin: 02/17/18 22:12 Dose: 30 ml Metoprolol Succinate (Toprol Xl Tab*) 50 mg PO QAM [facility] Last Admin: 02/18/18 09:45 Dose: 50 mg Morphine Sulfate (Morphine Vial*) 2 mg IV Q4H PRN PRN Reason: PAIN - MODERATE Last Admin: 02/18/18 04:13 Dose: 2 mg Ondansetron HCl (Zofran 40 Mg Vial*) 4 mg IV Q6H PRN PRN Reason: NAUSEA Oxycodone/Acetaminophen (Percocet 5/325 Tab*) 1 tab PO Q4H PRN PRN Reason: PAIN Last Admin: 02/18/18 01:57 Dose: 1 tab Polyethylene Glycol/Electrolytes (Miralax*) 17 gm PO DAILY PRN PRN Reason: CONSTIPATION Last Admin: 02/17/18 22:11 Dose: 17 gm Prochlorperazine Edisylate (Compazine Inj*) 5 mg IV Q6H PRN PRN Reason: NAUSEA Tramadol HCl (Ultram*) 50 mg PO Q6H PRN PRN Reason: PAIN - MILD Vital Signs - 8 hr 02/18/18 11:22 Temperature 98.1 F Pulse Rate 77 Respiratory 20 Rate Blood Pressure 150/71 (mmHg) O2 Sat by Pulse 93 Oximetry Oxygen Devices in Use Now: None Appearance: Patient is an 82yo female who appears stated age and is sitting in the bed in [facility]. Eyes: No Scleral Icterus, PERRLA Ears/Nose/Mouth/Throat: NL Teeth, Lips, Gums, Clear Oropharnyx, Mucous Membranes Moist Neck: NL Appearance and Movements; NL JVP, Trachea Midline Respiratory: Symmetrical Chest Expansion and Respiratory Effort, Clear to Auscultation Cardiovascular: NL Sounds; No Murmurs; No JVD, RRR, No Edema Abdominal: NL Sounds; No Tenderness; No Distention, No Hepatosplenomegaly Lymphatic: No Cervical Adenopathy Extremities: No Edema, No Clubbing, Cyanosis Skin: No Rash or Ulcers, No Nodules or Sclerosis Neurological: Alert and Oriented x 3, NL Sensation, NL Muscle Strength and Tone , - - Multiple negative Scotomata. CN II-XII intact. Difficult to assess due to cosmetic surgery. Result Diagrams: 02/16/18 06:16 02/16/18 06:16 Additional Lab and Data: Lab Results Assess/Plan/Problems-Billing Assessment: 82 yo female from [place] with a PMH of HTN, Osteoarthritis, HLD and anxiety who was at [facility] and had a mechanical fall found to have a right femoral neck fracture which has been repaired. Patient had a new episode of negative scotomata in all visual jackson in both eyes. - Patient Problems (1) Local peripheral scotoma of both eyes Current Visit: Yes Status: Acute Code(s): H53.453 - OTHER LOCALIZED VISUAL FIELD DEFECT, BILATERAL SNOMED Code(s): 725918165 Comment: Appreciate Neuro consult. Should follow up with Opthomologist outpatient. CT negative. Continue ASA. No further workup recommended. No other focal deficits. Will monitor. Likely represents PVD. (2) Fracture of femoral neck, right, closed Current Visit: Yes Status: Acute Code(s): S72.001A - FRACTURE OF UNSP PART OF NECK OF RIGHT FEMUR, INIT SNOMED Code(s): 448547846 Comment: POD #2 s/p hip cannulated screw Dispo per Orth Team Pain management, bowel regimen, PT/OT WBAT Will likely need CHRISTIANA. (3) Depression Current Visit: Yes Status: Chronic Code(s): F32.9 - MAJOR DEPRESSIVE DISORDER, SINGLE EPISODE, UNSPECIFIED SNOMED Code(s): 00470646 Comment: Euthymic Continue celexa Supportive treatment (4) HLD (hyperlipidemia) Current Visit: Yes Status: Chronic Code(s): E78.5 - HYPERLIPIDEMIA, UNSPECIFIED SNOMED Code(s): 98014357 Comment: Continue statin (5) HTN (hypertension) Current Visit: Yes Status: Chronic Code(s): I10 - ESSENTIAL (PRIMARY) HYPERTENSION SNOMED Code(s): 48681027 Comment: Slightly elevated. Continue Metoprolol home dose with hold parameters. Will not treat at this time due to concern of vascular abnormalities in the eyes. (6) DVT prophylaxis Current Visit: Yes Status: Acute Code(s): BKU7043 - SNOMED Code(s): 057354802 Comment: eduardo (7) Full code status Current Visit: Yes Status: Acute Code(s): Z78.9 - OTHER SPECIFIED HEALTH STATUS SNOMED Code(s): 441501025 Status and Disposition: inpatient with right femoral neck fracture with repair. lives in [place], discharge to be determined. Most likely subacute closer to family.
[2018-02-18] MEDS: Atorvastatin* 40 MG TAB PO SCH (18:06)
[2018-02-18] MEDS ORDERED: ALPRAZolam TAB* 0.5 MG PO ONE (19:32)
[2018-02-18] MEDS: Citalopram TAB* 20 MG PO SCH (20:05)
[2018-02-19] MEDS: traMADol TAB* 50 MG PO PRN ×2 (00:54→18:47)
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
[2018-02-19 05:20] LABS: Hematocrit 29 % (35-47); Hemoglobin 10.1 g/dl (12.0-16.0)
[2018-02-19 05:33] LABS: EGFR Non-African American 113.5 (>60)
[2018-02-19] MEDS: Metoprolol Succinate XL TAB* 50 MG PO SCH (09:00)
[2018-02-19] MEDS ORDERED: Potassium Chloride LIQUID* 20 MEQ PACKET PO ONE (09:00)
[2018-02-19] MEDS: Docusate CAP* 100 MG PO SCH ×2 (09:00→21:20)
[2018-02-19] MEDS: Aspirin EC TAB* 81 MG TAB.EC PO SCH (09:00)
[2018-02-19] MEDS: Enoxaparin(*) 30 MG/0.3 ML SYR SUBCUT SCH (09:02)
--- NOTE | 2018-02-19 10:32 | PN ---
Progress Note - Progress Note Date of Service: 02/19/18 SOAP: Subjective: []Patient seen at bedside. She feels well with well controlled hip pain. Denies chest pain, shortness of breath, dizziness, nausea. Yesterday had a neuro consult for scotoma of eyes. Her CT was negative for CVA, it was suggest she continue aspirin and follow up with an Opthomologist outpatient. Objective: [] Vital Signs Temp 98.0 F 02/19/18 07:47 Pulse 84 02/19/18 07:47 Resp 16 02/19/18 08:00 BP 146/74 02/19/18 07:47 Pulse Ox 92 02/19/18 08:42 Intake & Output 02/18/18 02/19/18 02/19/18 18:59 06:59 18:59 Intake Total 120 420 360 Output Total 300 400 Balance -180 20 360 Intake: Oral 120 420 360 Output: Urine 300 400 Other: Estimated Void Medium # Voids 1 Laboratory Last Values WBC 3.2 10^3/ul (3.5-10.8) L 02/15/18 16:42 RBC 3.64 10^6/ul (4.0-5.4) L 02/15/18 16:42 Hgb 10.1 g/dl (12.0-16.0) L 02/19/18 04:40 Hct 29 % (35-47) L 02/19/18 04:40 MCV 91 fL (80-97) 02/15/18 16:42 MCH 31 pg (27-31) 02/15/18 16:42 MCHC 34 g/dl (31-36) 02/15/18 16:42 RDW 14 % (10.5-15) 02/15/18 16:42 Plt Count 211 10^3/ul (150-450) 02/15/18 16:42 MPV 7.3 um3 (7.4-10.4) L 02/15/18 16:42 Neut % (Auto) 48.9 % (38-83) 02/15/18 16:42 Lymph % (Auto) 40.2 % (25-47) 02/15/18 16:42 [place] % (Auto) 6.2 % (0-7) 02/15/18 16:42 Eos % (Auto) 3.9 % (0-6) 02/15/18 16:42 Baso % (Auto) 0.8 % (0-2) 02/15/18 16:42 Absolute Neuts (auto) 1.6 10^3/ul (1.5-7.7) 02/15/18 16:42 Absolute Lymphs (auto) 1.3 10^3/ul (1.0-4.8) 02/15/18 16:42 Absolute Monos (auto) 0.2 10^3/ul (0-0.8) 02/15/18 16:42 Absolute Eos (auto) 0.1 10^3/ul (0-0.6) 02/15/18 16:42 Absolute Basos (auto) 0 10^3/ul (0-0.2) 02/15/18 16:42 Absolute Nucleated RBC 0 10^3/ul 02/15/18 16:42 Nucleated RBC % 0 02/15/18 16:42 INR (Anticoag Therapy) 0.96 (0.77-1.02) 02/15/18 16:42 APTT 33.5 seconds (26.0-36.3) 02/15/18 16:42 Sodium 135 mmol/L (139-145) L 02/19/18 04:40 Potassium 3.2 mmol/L (3.5-5.0) L 02/19/18 04:40 Chloride 103 mmol/L (101-111) 02/19/18 04:40 Carbon Dioxide 26 mmol/L (22-32) 02/19/18 04:40 Anion Gap 6 mmol/L (2-11) 02/19/18 04:40 BUN 10 mg/dL (6-24) 02/19/18 04:40 Creatinine 0.52 mg/dL (0.51-0.95) 02/19/18 04:40 Est GFR ( Amer) 145.9 (>60) 02/19/18 04:40 Est GFR (Non-Af Amer) 113.5 (>60) 02/19/18 04:40 BUN/Creatinine Ratio 19.2 (8-20) 02/19/18 04:40 Glucose 107 mg/dL (70-100) H 02/19/18 04:40 Calcium 8.4 mg/dL (8.6-10.3) L 02/19/18 04:40 Total Bilirubin 0.60 mg/dL (0.2-1.0) 02/15/18 16:42 AST 42 U/L (13-39) H 02/15/18 16:42 ALT 38 U/L (7-52) 02/15/18 16:42 Alkaline Phosphatase 44 U/L (34-104) 02/15/18 16:42 Total Protein 6.8 g/dL (6.4-8.9) 02/15/18 16:42 Albumin 4.0 g/dL (3.2-5.2) 02/15/18 16:42 Globulin 2.8 g/dL (2-4) 02/15/18 16:42 Albumin/Globulin Ratio 1.4 (1-3) 02/15/18 16:42 Blood Type O Negative 02/15/18 16:45 Antibody Screen Negative 02/15/18 16:45 General: Well appearing, NAD, carries on appropriate conversation. RLE: Dressing changed. Incision CDI without erythema or discharge. Thigh is soft and patient is able to flex and extend hip, knee and ankle. Sensation intact to light touch throughout RLE. DP 2+. Capillary refill less than two seconds distally. Assessment: []S/P R hip cannulated screws Plan: []WBAT PT/OT lovenox for 6 weeks Awaiting insurance approval for transfer to rehab closer to family, can follow up with [facility] Dr Val Gonzales ([phone]) who is aware.
--- NOTE | 2018-02-19 13:42 | PN ---
Subjective Date of Service: 02/19/18 Interval History: Patient has decreased but persistent scotomata in bilateral eyes. Patient has Patient states pain is minimal at rest in hip. Patient denies F/C, N/V, abdominal pain, diarrhea, CP, SOB, or other pain. Family History: Unchanged from Admission Social History: Unchanged from Admission Past Medical History: Unchanged from Admission Objective Active Medications: Aspirin (Aspirin Ec Tab*) 81 mg PO DAILY [facility] Last Admin: 02/19/18 09:00 Dose: 81 mg Atorvastatin Calcium (Lipitor*) 40 mg PO QPM [facility] Last Admin: 02/18/18 18:06 Dose: 40 mg Citalopram Hydrobromide (Celexa Tab*) 20 mg PO BEDTIME [facility] Last Admin: 02/18/18 20:05 Dose: 20 mg Docusate Sodium (Colace Cap*) 100 mg PO BID [facility] Last Admin: 02/19/18 09:00 Dose: 100 mg Enoxaparin Sodium (Lovenox(*)) 30 mg SUBCUT Q24H [facility] Last Admin: 02/19/18 09:02 Dose: 30 mg Magnesium Hydroxide (Milk Of Magnesia Liq*) 30 ml PO Q6H PRN PRN Reason: CONSTIPATION Last Admin: 02/17/18 22:12 Dose: 30 ml Metoprolol Succinate (Toprol Xl Tab*) 50 mg PO QAM [facility] Last Admin: 02/19/18 09:00 Dose: 50 mg Morphine Sulfate (Morphine Vial*) 2 mg IV Q4H PRN PRN Reason: PAIN - MODERATE Last Admin: 02/18/18 04:13 Dose: 2 mg Ondansetron HCl (Zofran 40 Mg Vial*) 4 mg IV Q6H PRN PRN Reason: NAUSEA Oxycodone/Acetaminophen (Percocet 5/325 Tab*) 1 tab PO Q4H PRN PRN Reason: PAIN Last Admin: 02/18/18 01:57 Dose: 1 tab Polyethylene Glycol/Electrolytes (Miralax*) 17 gm PO DAILY PRN PRN Reason: CONSTIPATION Last Admin: 02/17/18 22:11 Dose: 17 gm Prochlorperazine Edisylate (Compazine Inj*) 5 mg IV Q6H PRN PRN Reason: NAUSEA Tramadol HCl (Ultram*) 50 mg PO Q6H PRN PRN Reason: PAIN - MILD Last Admin: 02/19/18 00:54 Dose: 50 mg Vital Signs - 8 hr 02/19/18 02/19/18 02/19/18 07:47 08:00 08:42 Temperature 98.0 F Pulse Rate 84 Respiratory 16 18 Rate Blood Pressure 146/74 (mmHg) O2 Sat by Pulse 87 92 Oximetry 02/19/18 11:47 Temperature 98.3 F Pulse Rate 81 Respiratory 16 Rate Blood Pressure 142/81 (mmHg) O2 Sat by Pulse 95 Oximetry Oxygen Devices in Use Now: None Appearance: Patient is an 82yo female who appears stated age and is sitting in the bed in [facility]. Eyes: No Scleral Icterus, PERRLA Ears/Nose/Mouth/Throat: NL Teeth, Lips, Gums, Clear Oropharnyx, Mucous Membranes Moist Neck: NL Appearance and Movements; NL JVP, Trachea Midline Respiratory: Symmetrical Chest Expansion and Respiratory Effort, Clear to Auscultation Cardiovascular: NL Sounds; No Murmurs; No JVD, RRR, No Edema Abdominal: NL Sounds; No Tenderness; No Distention, No Hepatosplenomegaly Lymphatic: No Cervical Adenopathy Extremities: No Edema, No Clubbing, Cyanosis Skin: No Nodules or Sclerosis, - - Right hip dressing CDI. Neurological: Alert and Oriented x 3, NL Sensation, NL Muscle Strength and Tone , - - CN II-XII intact. Result Diagrams: 02/19/18 04:40 02/19/18 04:40 Additional Lab and Data: Lab Results Assess/Plan/Problems-Billing Assessment: 82 yo female from [place] with a PMH of HTN, Osteoarthritis, HLD and anxiety who was at [facility] and had a mechanical fall found to have a right femoral neck fracture which has been repaired. Patient had a new episode of negative scotomata in all visual jackson in both eyes. - Patient Problems (1) Fracture of femoral neck, right, closed Current Visit: Yes Status: Acute Code(s): S72.001A - FRACTURE OF UNSP PART OF NECK OF RIGHT FEMUR, INIT SNOMED Code(s): 659541019 Comment: POD #3 s/p hip cannulated screw Pain management, bowel regimen, PT/OT WBAT Will likely need CHRISTIANA. Hopeful discharge tomorrow. (2) Local peripheral scotoma of both eyes Current Visit: Yes Status: Acute Code(s): H53.453 - OTHER LOCALIZED VISUAL FIELD DEFECT, BILATERAL SNOMED Code(s): 799473935 Comment: Appreciate Neuro consult. Should follow up with Opthomologist outpatient. CT negative. Continue ASA. No further workup recommended. No other focal deficits. Will monitor. Likely represents Posterior Vitreous Detachment or hemorrhage. (3) Depression Current Visit: Yes Status: Chronic Code(s): F32.9 - MAJOR DEPRESSIVE DISORDER, SINGLE EPISODE, UNSPECIFIED SNOMED Code(s): 55874890 Comment: Euthymic Continue celexa Supportive treatment (4) HLD (hyperlipidemia) Current Visit: Yes Status: Chronic Code(s): E78.5 - HYPERLIPIDEMIA, UNSPECIFIED SNOMED Code(s): 50963457 Comment: Continue statin (5) HTN (hypertension) Current Visit: Yes Status: Chronic Code(s): I10 - ESSENTIAL (PRIMARY) HYPERTENSION SNOMED Code(s): 58488203 Comment: Slightly elevated. Continue Metoprolol home dose with hold parameters. Begin Lisinopril. (6) DVT prophylaxis Current Visit: Yes Status: Acute Code(s): PIG8156 - SNOMED Code(s): 257433237 Comment: lovenox (7) Full code status Current Visit: Yes Status: Acute Code(s): Z78.9 - OTHER SPECIFIED HEALTH STATUS SNOMED Code(s): 362851348 Status and Disposition: inpatient with right femoral neck fracture with repair. Plan for discharge to [facility] closer to family.
[2018-02-19] MEDS: Lisinopril TAB* 5 MG PO SCH (13:58)
[2018-02-19] MEDS: Atorvastatin* 40 MG TAB PO SCH (17:56)
[2018-02-19] MEDS: Citalopram TAB* 20 MG PO SCH (21:20)
[2018-02-19] MEDS: oxyCODONE/Acetamin 5/325 MG* TAB PO PRN (21:23)
[2018-02-20] MEDS: oxyCODONE/Acetamin 5/325 MG* TAB PO PRN (04:03)
[2018-02-20 05:58] LABS: ABS Basophils 0 10^3/ul (0-0.2); ABS Eosinophils 0.4 10^3/ul (0-0.6); ABS Lymphocytes 1.4 10^3/ul (1.0-4.8); ABS Monocytes 0.4 10^3/ul (0-0.8); ABS Nucleated RBC 0 10^3/ul; Eosinophil % 10.3 % (0-6); Hematocrit 28 % (35-47); Hemoglobin 9.8 g/dl (12.0-16.0); Lymphocyte % 32.4 % (25-47); Mean Corpuscular HGB Conc 35 g/dl (31-36); Mean Corpuscular Hemoglobin 31 pg (27-31); Mean Corpuscular Volume 90 fL (80-97); Mean Platelet Volume 7.4 um3 (7.4-10.4); Nucleated Red Blood Cells % 0.1; Platelet Count 209 10^3/ul (150-450); Red Blood Count 3.12 10^6/ul (4.0-5.4); Red Cell Distribution Width 14 % (10.5-15); White Blood Count 4.3 10^3/ul (3.5-10.8)
[2018-02-20 06:14] LABS: EGFR Non-African American 87.7 (>60)
--- NOTE | 2018-02-20 08:26 | PN ---
CC: STERLING Raymundo NEUROLOGY PROGRESS NOTE: DATE OF SERVICE: 02/19/18 PRIMARY PROVIDER: STERLING Raymundo REASON FOR NEUROLOGY FOLLOWUP: Abnormal vision/floaters. SUBJECTIVE: The patient is resting comfortably. She is drowsy and sleepy today as she participated with physical therapy today. She was able to tolerate her breakfast without any complications. She still has floaters, but has to really concentrate to look for them. Now, the floaters have decreased significantly since yesterday. She denied any headaches, visual disturbance, acute visual loss, or focal weakness or paraesthesias. REVIEW OF SYSTEMS: She denied any chest pain, shortness of breath, or palpitations. MEDICATIONS: 1. Aspirin 2. Lipitor 3. Celexa 4. Enoxaparin for DVT prophylaxis 5. Metoprolol 6. Morphine for pain. 7. Ondansetron. 8. Percocet. 9. Compazine 10. Ultram. PHYSICAL EXAMINATION: Vitals: The temperature is 98 degrees, pulse rate 84, respiratory rate 16, oxygen saturation 92 on room air, blood pressure 146/74. Well- appearing female, in no acute distress. Atraumatic, normocephalic. Neurological Examination: Alert, oriented to person, place, time and situation. Pupil equal, round, reactive to light. Extraocular muscles are intact. No facial asymmetry. Motor Examination: Moves all upper and lower extremities against resistance without limitation except for limited range of motion for right hip status post hip fracture. ASSESSMENT: Mrs. Rogers is a 82-year-old female who had a fall with subsequent right hip fracture who developed visual floaters. I suspect she may have mild posterior vitreous detachment or vitreous hemorrhage that is explaining her floaters. This seems to be improving over the last 24 hours. RECOMMENDATIONS: I recommend a followup with Ophthalmology within the next week. The patient is pending a rehabilitation bed. There is no evidence of any focal neurological deficits. I discussed these recommendations with the patient, and the patient's provider, Kelvin, who agreed with the above findings. Please contact me for any questions or concerns. I will sign off. [id number]/[facility] #: [id number] MTDTatiana
[2018-02-20] MEDS: Lisinopril TAB* 5 MG PO SCH (08:28)
[2018-02-20] MEDS: Aspirin EC TAB* 81 MG TAB.EC PO SCH (08:28)
[2018-02-20] MEDS: Metoprolol Succinate XL TAB* 50 MG PO SCH (08:28)
[2018-02-20] MEDS: Docusate CAP* 100 MG PO SCH (08:28)
--- NOTE | 2018-02-20 09:39 | PN ---
Progress Note - Progress Note Date of Service: 02/20/18 SOAP: Subjective: []Patient seen OOB in chair. She is feeling well without any complaints. Denies R hip pain, CP, SOB, dizziness, nausea. Objective: [] Vital Signs Temp 97.7 F 02/20/18 07:27 Pulse 67 02/20/18 07:27 Resp 16 02/20/18 08:20 BP 108/62 02/20/18 07:27 Pulse Ox 92 02/20/18 07:27 Intake & Output 02/19/18 02/20/18 02/20/18 18:59 06:59 18:59 Intake Total 1420 650 200 Output Total 1400 600 250 Balance 20 50 -50 Intake: Oral 1420 650 200 Output: Urine 1400 600 250 Other: Estimated Stool Amount Small Laboratory Last Values WBC 4.3 10^3/ul (3.5-10.8) 02/20/18 05:11 RBC 3.12 10^6/ul (4.0-5.4) L 02/20/18 05:11 Hgb 9.8 g/dl (12.0-16.0) L 02/20/18 05:11 Hct 28 % (35-47) L 02/20/18 05:11 MCV 90 fL (80-97) 02/20/18 05:11 MCH 31 pg (27-31) 02/20/18 05:11 MCHC 35 g/dl (31-36) 02/20/18 05:11 RDW 14 % (10.5-15) 02/20/18 05:11 Plt Count 209 10^3/ul (150-450) 02/20/18 05:11 MPV 7.4 um3 (7.4-10.4) 02/20/18 05:11 Neut % (Auto) 47.9 % (38-83) 02/20/18 05:11 Lymph % (Auto) 32.4 % (25-47) 02/20/18 05:11 [place] % (Auto) 8.4 % (0-7) H 02/20/18 05:11 Eos % (Auto) 10.3 % (0-6) H 02/20/18 05:11 Baso % (Auto) 1.0 % (0-2) 02/20/18 05:11 Absolute Neuts (auto) 2.0 10^3/ul (1.5-7.7) 02/20/18 05:11 Absolute Lymphs (auto) 1.4 10^3/ul (1.0-4.8) 02/20/18 05:11 Absolute Monos (auto) 0.4 10^3/ul (0-0.8) 02/20/18 05:11 Absolute Eos (auto) 0.4 10^3/ul (0-0.6) 02/20/18 05:11 Absolute Basos (auto) 0 10^3/ul (0-0.2) 02/20/18 05:11 Absolute Nucleated RBC 0 10^3/ul 02/20/18 05:11 Nucleated RBC % 0.1 02/20/18 05:11 INR (Anticoag Therapy) 0.96 (0.77-1.02) 02/15/18 16:42 APTT 33.5 seconds (26.0-36.3) 02/15/18 16:42 Sodium 133 mmol/L (139-145) L 02/20/18 05:11 Potassium 3.9 mmol/L (3.5-5.0) 02/20/18 05:11 Chloride 102 mmol/L (101-111) 02/20/18 05:11 Carbon Dioxide 25 mmol/L (22-32) 02/20/18 05:11 Anion Gap 6 mmol/L (2-11) 02/20/18 05:11 BUN 13 mg/dL (6-24) 02/20/18 05:11 Creatinine 0.65 mg/dL (0.51-0.95) 02/20/18 05:11 Est GFR ( Amer) 112.8 (>60) 02/20/18 05:11 Est GFR (Non-Af Amer) 87.7 (>60) 02/20/18 05:11 BUN/Creatinine Ratio 20.0 (8-20) 02/20/18 05:11 Glucose 103 mg/dL (70-100) H 02/20/18 05:11 Calcium 9.0 mg/dL (8.6-10.3) 02/20/18 05:11 Total Bilirubin 0.60 mg/dL (0.2-1.0) 02/15/18 16:42 AST 42 U/L (13-39) H 02/15/18 16:42 ALT 38 U/L (7-52) 02/15/18 16:42 Alkaline Phosphatase 44 U/L (34-104) 02/15/18 16:42 Total Protein 6.8 g/dL (6.4-8.9) 02/15/18 16:42 Albumin 4.0 g/dL (3.2-5.2) 02/15/18 16:42 Globulin 2.8 g/dL (2-4) 02/15/18 16:42 Albumin/Globulin Ratio 1.4 (1-3) 02/15/18 16:42 Blood Type O Negative 02/15/18 16:45 Antibody Screen Negative 02/15/18 16:45 General: Well appearing, NAD, carries on appropriate conversation. RLE: Dressing changed. Incision CDI without erythema or discharge. Less than 1 cm superficial skin tear from tape, mild bleeding controlled . Thigh is soft and patient is able to flex and extend hip, knee and ankle. Sensation intact to light touch throughout RLE. DP 2+. Capillary refill less than two seconds distally. Assessment: []S/P R hip cannulated screws Plan: []WBAT PT/OT lovenox for 6 weeks DC to [facility] today, can follow up 10-14 days post op with [facility] Dr. Val Gonzales ([phone]) who is aware.
[2018-02-20 09:47] VITALS: BP 124/59
[2018-02-20] MEDS: Enoxaparin(*) 30 MG/0.3 ML SYR SUBCUT SCH (09:58)
[2018-02-20] MEDS: traMADol TAB* 50 MG PO PRN (10:54)
--- NOTE | 2018-02-20 11:23 | DS ---
CC: [place], [place]; Dr. Kori Rg; Dr. Val Gonzales, [facility] * DISCHARGE SUMMARY: DATE OF ADMISSION: 02/15/18 DATE OF DISCHARGE: 02/20/18 PRIMARY CARE PROVIDER: In [place], their name is unknown at this time. MY ATTENDING WHILE IN THE HOSPITAL: Dr. Francisca Castro.* (DICTATED BY STERLING NGUYEN) CONSULTING ORTHOPEDIST: Dr. Kori Rg. PRIMARY DISCHARGE DIAGNOSES: 1. Right femoral neck fracture, status post open reduction internal fixation. 2. Probable vitreous detachment or hemorrhage. 3. Acute Kidney Injury, Resolved SECONDARY DISCHARGE DIAGNOSES: 1. Hypertension. 2. Hyperlipidemia. 3. Anxiety. 4. Osteoarthritis. 5. Osteoporosis. STUDIES DONE WHILE IN THE HOSPITAL: Pelvis x-ray from 02/15/18 read as slightly impacted fracture of the right femoral neck. Femur x-ray from 02/15/18 read as slightly impacted fracture of the right femoral neck. Chest x-ray from 02/15/18, read as hyperinflation, no active cardiopulmonary disease. Electrocardiogram from 02/15/18 shows normal sinus rhythm, PAC, no ST-segment abnormalities, QTc 447, rate 55, possible left atrial enlargement, no other abnormalities. Pelvis x-ray from 02/15/18 read as again noticed a slightly impacted and angulated fracture of the right femoral neck. Hip x-ray from 02/16/18 read as intraoperative fluoroscopy. Brain CT from 02/18/18 read as no acute findings, mild involutional change with chronic microvascular ischemia. MEDICATIONS AT DISCHARGE: 1. Citalopram 20 mg p.o. daily. 2. Rosuvastatin 20 mg p.o. daily. 3. Metoprolol 50 mg p.o. q.a.m. 4. Aspirin 81 mg p.o. daily. 5. Docusate 100 mg p.o. b.i.d. 6. Lovenox 30 mg subcutaneous q.24 hours until 03/30/18. 7. Lisinopril 5 mg p.o. daily. 8. Magnesium hydroxide 30 mL p.o. q.6 hours as needed. 9. Percocet 1 tab p.o. q.4 hours as needed. 10. Polyethylene glycol 17 g p.o. daily as needed. 11. Tramadol 50 mg p.o. q.6 hours as needed. HOSPITAL COURSE: This is a brief summary of the patient's presentation. For more details, please see the history and physical from Odessa Liu NP , on 02/15/18. In brief, the patient is an 82-year-old female with past medical history significant for the above, who presents after she was attending her grandson's graduation at [employer] and within a crowd, lost her footing falling on her right buttock and hip. She immediately felt pain, no numbness or tingling. She was unable to stand. She was found to have a femoral neck fracture. The patient had no loss of consciousness. No prodromal symptoms. No chest pain, nausea, vomiting. The patient otherwise has no other complaints. The patient was seen in consultation by Dr. Kori Rg, who recommended surgery with right hip cannulated screws to which the patient and her family were in agreement. The patient had the surgery performed on 02/16/18 without complication. The patient's hemoglobin on admission was 11.3. On the day of discharge, it was 9.8. The patient's sodium on admission was 136 and declined to 133 on day of discharge. The patient's potassium was 3.9 on admission, decreased to 3.2 and then came back up to 3.9 on the day discharge. The patient 's creatinine was 0.99, declined to 0.65. On the day of admission, the patient also had elevated morning glucoses consistently with her lab work. No significant laboratory abnormalities during this hospitalization. The patient' s pain was well controlled with pain medications as above. The patient was started on Lovenox for DVT prophylaxis. The patient worked well with physical therapy and occupational therapy. She was identified to have needs after discharge. The patient was amenable to subacute rehab close to her family near [facility]. On 02/18/18, the patient woke up in the morning with multiple black dots in her vision throughout both visual jackson not confined to any quadrant. The patient had no other neurological deficits. Given the unlikely possibility this represented stroke possibly from fat emboli, the patient had a CT of her head which was negative. The patient was seen in consultation by Dr. Fabien Hernandez of Neurology, who believed this was a vitreous hemorrhage or posterior vitreous detachment and recommended ophthalmological followup. The patient was started on aspirin to maintain blood flow to her retina. These scotomas decreased in intensity over the course of the next 2 days. The patient stated that she previously had an episode like this which self-resolved and that she never had medical attention for. The patient's blood pressure was mildly elevated on 02/19/18 after slowly increasing over the course of her hospitalization. The patient was started on low-dose lisinopril with good response in her blood pressure and no side effects or significant increase in her creatinine. The patient will be discharged to [facility] with the goal of returning back to [place] when she is able. PHYSICAL EXAM ON THE DAY OF DISCHARGE: General: The patient is an 82-year-old female who appears stated age and sitting comfortably in the bed in no acute distress. Vital Signs: At the time of discharge, temperature 97.7, pulse rate 67, respiratory rate 16, oxygen saturation 92% on room air, blood pressure 108/ 62. HEENT: Head: Normocephalic, atraumatic. Sclerae anicteric. No conjunctival injection. Nasal mucosa is moist. Oral mucosa moist. No pharyngeal erythema, discharge, or exudate. Neck: Supple, nontender. No lymphadenopathy. No carotid bruits auscultated. No JVD. Cardiac: Regular rate and rhythm. No clicks, murmurs, gallops, or rubs. Pulses 2+ in the bilateral dorsalis pedis, posterior tibial, and the radial areas. No bilateral lower extremity edema or calf tenderness noted. Respiratory: Clear to auscultation bilaterally. No wheezes, rales, or rhonchi. Good air exchange bilaterally. Abdomen: Soft, nontender, nondistended. Bowel sounds present and normoactive in all 4 quadrants. No hepatosplenomegaly. No abdominal bruits auscultated. Genitourinary: No suprapubic or CVA tenderness. Skin: Right hip surgical incision covered by bulky dressing, no other rash noted. Neuro: Cranial nerves II through XII intact. Scotoma are persistent but still decreasing. No other visual field cuts. Extraocular movements are intact. Strength preserved in bilateral upper and lower extremities distally and proximally. Sensation to light touch preserved in bilateral upper and lower extremities distally and proximally. Reflexes are 1+ in bilateral biceps, patellar and Achilles areas. Babinski is downgoing bilaterally. Psychiatric: Very pleasant and cooperative. DISCHARGE PLAN: The patient will be discharged to [facility] with physical and occupational therapy with goal of returning home to [place] after subacute rehab. The patient due to her mild anemia and hyponatremia, should have a repeat CBC and BMP drawn in 1 week. These are likely predicable postoperative complications and should resolve as she moves farther out from her surgery. The patient had elevated fasting glucoses while in the hospital. This should be followed by primary care provider. The patient should have followup with Ophthalmology for retinal exam within 1 week from discharge with [facility] at [address] [place] [address] in [place], [place], phone number [phone], would be an optimal choice. The patient should continue on Lovenox for 6 weeks starting on 02/16/18, which should take her to 03/30/18 for DVT prophylaxis. The patient should be continued on her medications as above. The patient should follow up with primary care provider when she returns to [place] for general medical management. The patient should follow up with Dr. Gonzales of [facility], who is aware of this through Dr. Kori Rg. The patient's irene should be removed at the discretion of Dr. Gonzales. The patient should have a heart- healthy diet without caffeine. TIME SPENT: Approximately 60 minutes was spent on this discharge, 30 of which was spent [id number] with the patient obtaining history and physical and discussing treatment plan. STERLING NGUYEN [id number]/[facility] #: [id number] PIOTR
== END 2018-02-20 11:15 | DRG 481 ==
LOC: ED 15:10 → SSU 17:06
PROVIDERS: ADMIT Internal Medicine; ATTEND Internal Medicine
PROC: 0QS604Z Reposition Right Upper Femur with Internal Fixation Device, Open Approach (ICD-10-PCS; principal; 2018-02-16 10:00)
DX: S72.011A Unspecified intracapsular fracture of right femur, initial encounter for closed fracture (principal); N17.9 Acute kidney failure, unspecified; E87.1 Hypo-osmolality and hyponatremia; D64.9 Anemia, unspecified; E86.0 Dehydration; W03.XXXA Other fall on same level due to collision with another person, initial encounter; I10 Essential (primary) hypertension; M19.90 Unspecified osteoarthritis, unspecified site; M81.0 Age-related osteoporosis without current pathological fracture; E78.5 Hyperlipidemia, unspecified; F41.9 Anxiety disorder, unspecified; Z96.642 Presence of left artificial hip joint; Z96.89 Presence of other specified functional implants; R51 Headache; H43.393 Other vitreous opacities, bilateral; I70.209 Unspecified atherosclerosis of native arteries of extremities, unspecified extremity; Z87.891 Personal history of nicotine dependence; Z98.42 Cataract extraction status, left eye; Y92.89 Other specified places as the place of occurrence of the external cause; Z98.41 Cataract extraction status, right eye; F32.9 Major depressive disorder, single episode, unspecified; R11.0 Nausea; H53.453 Other localized visual field defect, bilateral; H43.813 Vitreous degeneration, bilateral; H43.13 Vitreous hemorrhage, bilateral; Z79.82 Long term (current) use of aspirin
CPT/HCPCS: 36415; 70450; 71045; 72170; 80048; 80053; 85014; 85018; 85025; 85610; 85730; 86850; 86900; 86901; 93005; 99284; A9270-GY; C1713; G8978-GP-CL; G8979-GP-CI; G8987-GO-CK; G8988-GO-CI; G8989-GO-CI; J0690; J0780; J1650; J2270; J2704; J3010